=== PATIENT | female | born 2000 | race Caucasian/White ===

== ENCOUNTER 2024-10-01 15:14 | Outpatient (CLI) | payer OTHER, SELFPAY ==
--- NOTE | 2024-10-01 15:30 | MR_ITS ---
[address] [address] Phone:?[phone] Fax:?[phone] Referring Physician Information: Jill Welch [address] [facility] [address] Phone:?[phone] Fax:?[phone] Patient:Shellie Lunsford D.O.B:?2000 Sex:?Female Phone:?[phone] [facility] MRN:?[id number] Exam Date:?10/01/2024 EXAM: MRI EXAMINATION OF THE LEFT KNEE CLINICAL INFORMATION: Left knee pain. No history of surgery to this area. Evaluate MCL and ACL injuries. TECHNICAL INFORMATION: Coronal PD and STIR. Axial PD and T2 fat saturation. Sagittal PD and PD fat saturation images acquired. No prior studies for comparison. INTERPRETATION: Bones: Localized moderate marrow edema signal to indicate osseous contusion towards the anterior periphery of the lateral femoral condyle. No acute fracture. No other occult fracture or osseous contusion. No other abnormal bone marrow edema pattern is identified. Ligaments and tendons: The medial collateral ligament is seen to be normally intact. There are mild changes of soft tissue edema signal alongside the proximal portion of the ligament. The iliotibial band, fibular collateral ligament, biceps femoris tendon and popliteus tendon all are intact. The anterior cruciate ligament is intact without acute sprain or tear. The posterior cruciate ligament is intact. Extensor Mechanism: The patellar and quadriceps tendons are intact. The medial and lateral retinacula are intact. Knee Joint: There is no knee joint effusion. There is a small and slender popliteal cyst. There is no discrete loose body seen within the joint. Medial Compartment: There is no evidence for discrete medial meniscal tear. No displaced flap fragment or parameniscal cyst. There is no focal chondral defect. No other significant changes of chondromalacia. Lateral Compartment: There is no evidence for discrete lateral meniscal tear. No displaced flap fragment or parameniscal cyst. There is no focal chondral defect. No other significant changes of chondromalacia. Patellofemoral articulation: There is no focal chondral defect. No other significant chondromalacia. CONCLUSION: 1. Localized moderate marrow edema signal in keeping with osseous contusion towards the anterior periphery of the lateral femoral condyle. No acute fracture. 2. The MCL appears normally intact. Mild soft tissue edema signal alongside the proximal portion of the ligament as may be related to a grade 1 sprain injury. 3. No evidence for meniscal tear. The cruciate ligaments are intact. 4. The articular cartilage of the knee is preserved. 5. No evidence for a knee joint effusion. There is a small popliteal cyst. KES Electronically signed on 10/04/2024 11:20:00 AM by Daniel Miramontes M.D.
== END 2024-10-01 15:15 | disposition home or self-care (01) ==
LOC: MRI 15:16
PROVIDERS: PCP Internal Medicine; Visit Provider Physician Assistant
DX: M25.562 Pain in left knee (principal); S89.92XA Unspecified injury of left lower leg, initial encounter
CPT/HCPCS: 73721